=== PATIENT | female | born 1985 | race Caucasian/White ===

== ENCOUNTER 2019-04-03 20:45 | Emergency (ER) | payer MEDICAID, OTHER ==
[~2019-04-03] VITALS: Ht 167.6 cm; Wt 150.0 kg
[~2019-04-03 20:45] MED LIST: ACET-141 PO; LORA-441 PO
[2019-04-03 21:03] VITALS: BP 138/85; PULSE 87; RESP 18; Ht 167.6 cm; Wt 150.0 kg
--- NOTE | 2019-04-03 21:32 | ERD ---
ER Documentation Chief Complaint Chief Complaint CWP raidiating to upper left back ROS All systems reviewed and are negative except as per history of present illness. Medications Home Meds Active Scripts Acetaminophen* (Acetaminophen*) 500 MG Extra Strength Tablet, 500 MG PO Q4H PRN for PAIN AND OR ELEVATED TEMP, #30 TAB Prov:AMRIK LINDER 04/03/19 Lorazepam* (Ativan*) 0.5 Mg Tablet, 0.5 MG PO BID PRN for ANXIETY, #15 TAB Prov:LINDERAMRIK 04/03/19 Allergies Allergies: Coded Allergies: No Known Allergy (Unverified , 04/03/19) Physical Exam Vitals Vital Signs Date Temp Pulse Resp B/P (MAP) Pulse Ox O2 O2 Flow FiO2 Time Delivery Rate 04/03/19 98.0 87 18 138/85 97 21:03 (102) Physical Exam Const: No acute distress Head: Atraumatic Eyes: Normal Conjunctiva ENT: Normal External Ears, Nose and Mouth. Neck: Full range of motion. No meningismus. Resp: Clear to auscultation bilaterally Cardio: Regular rate and rhythm, no murmurs Abd: Soft, non tender, non distended. Normal bowel sounds Skin: No petechiae or rashes Back: No midline or flank tenderness Ext: No cyanosis, or edema Neur: Awake and alert Psych: Normal Mood and Affect Departure Diagnosis: Primary Impression: Chest wall pain Condition: Fair Patient Instructions: Anxiety Reaction, Chest Wall Strain Additional Instructions: Call your primary care doctor TOMORROW for an appointment during the next 1-2 days.See the doctor sooner or return here if your condition worsens before your appointment time. AMRIK LINDER DO Apr 03, 2019 21:31
== END 2019-04-03 21:38 | disposition home or self-care (01) ==
LOC: FTE 20:45
DX: R07.89 Other chest pain (principal)
CPT/HCPCS: 93005; Z7502; 99283